=== PATIENT | female | born 1955 | race Hispanic/Latino ===

== ENCOUNTER 2017-01-03 11:54 | Emergency (ER) | payer BC, OTHER ==
[2017-01-03 11:55] VITALS: BMI 26.6
[2017-01-03 11:59] VITALS: BP 119/85; PULSE 88; RESP 18; TEMP 98.3
[2017-01-03] MEDS ORDERED: Oxycodone/Acetaminophen 5/325 mg Tab PO STA (12:15)
--- NOTE | 2017-01-03 12:18 | C.PDOC ---
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 Pt reports, " tripped over my grandson and fell down , trying to break fall with my Right hand". Otherwise, pt denies weakness, sensory or vascular deficits to Right hand. Denies previous hx of Right wrist injury or surgery, denies head injury, LOC, syncope, headache , dizziness, neck pain, CP, denies any other active complaints. Ambulate to ED, not in any apparent distress. Time Seen by Provider: 01/03/17 12:10 Chief Complaint (Nursing): Upper Extremity Problem/Injury History Per: Patient Onset/Duration Of Symptoms: Sudden Onset Past Medical History Reviewed: Historical Data, Nursing Documentation, Vital Signs Vital Signs: Last Vital Signs Temp 98.3 F 01/03/17 12:50 Pulse 88 01/03/17 12:50 Resp 18 01/03/17 12:50 BP 119/85 01/03/17 12:50 Pulse Ox 97 01/03/17 12:50 - Medical History PMH: Arthritis, Asthma Denies: Chronic Kidney Disease - [facility] Procedures OTHER & OPEN REPAIR UMBILICAL HERNIA W GRAFT OR PROSTHESIS (08/25/13) Family History: States: No Known Family Hx - Social History Hx Tobacco Use: No Hx Alcohol Use: Yes Hx Substance Use: No - Immunization History Hx Tetanus Toxoid Vaccination: No Hx Influenza Vaccination: No Hx Pneumococcal Vaccination: No Review Of Systems Except As Marked, All Systems Reviewed And Found Negative. Constitutional: Negative for: Fever, Chills ENT: Negative for: Throat Pain Cardiovascular: Negative for: Chest Pain Gastrointestinal: Negative for: Nausea, Vomiting Genitourinary: Negative for: Incontinence Musculoskeletal: Positive for: Hand Pain (Right wrist pain) Neurological: Negative for: Weakness, Numbness, Altered Mental Status, Headache , Dizziness Physical Exam - Physical Exam Appears: Well, Non-toxic, No Acute Distress Skin: Normal Color, Warm, No Rash, No Ecchymosis Head: Atraumatic, Normacephalic Neck: No Midline Cervical Tenderness, No Paracervical Tenderness, No Step Off Deformity, Supple Extremity: No Normal ROM (decrease AROM of Right wrist due to pian. remainder exam is noraml with FAROM.), Tenderness (Dorsal aspect Right wrist with mild deformity. No neurovascular deficist distally to injury.), Capillary Refill ( less than 2sec to RUE) Neurological/Psych: Oriented x3, Normal Speech, Normal Motor, Normal Sensation, Normal Reflexes ED Course And Treatment O2 Sat by Pulse Oximetry: 96 - Other Rad Right wrist X-Ray: Interpreted by Me Interpretation: (+) distal radius fx, comminuted, non-displaced Right elbow X-Ray: Interpreted by Me, Viewed By Me Interpretation: no acute fx Progress Note: On re-eavl, pt is afebrile, hemodynamiclay stable. Non-toxic. Ambulatory in ED with stable gait. Head: AT/NC. neck: (-) midline tenderness. RUE: exam c/w wrist contusion r/o fx. No neurovascular deficits distally to injury. Imaging review (+) distal radial fx. Splint applied. Pt advised and ref. to f/u with Ortho in 2-3 days for re-eval. return to ED if any worsening or new changes. Orthopedic Time Performed: 12:30 Time Out: Side verified, Site verified, Patient ID confirmed Procedure: Splint Other:: Volar Location: Right, Wrist Consent obtained: Verbal Performed by: Mid-level Provider Diagnosis: Fracture Type: Closed, Non-displaced, Comminuted Location: Right, Distal Bone: Radius Disposition Counseled Patient/Family Regarding: Studies Performed, Diagnosis, Need For Followup, Rx Given - Disposition Referrals: Sterling Aguirre MD [Staff Provider] - Disposition: HOME/ ROUTINE Disposition Time: 12:31 Condition: STABLE Additional Instructions: Splint Take pain medication as need Follow up with Orthopedist in 2-3 days for re-evaluation. return to Ed if any worsening or new changes. Prescriptions: oxyCODONE/Acetaminophen [Percocet 5/325 mg Tab] 1 tab PO BID PRN #7 tab PRN Reason: Pain Instructions: Wrist Fracture in Adults (ED) - Clinical Impression Clinical Impression: Wrist fracture
[2017-01-03] MEDS ORDERED: Oxycodone/Acetaminophen 5/325 mg Tab ONE (12:30)
--- NOTE | 2017-01-03 15:44 | RAD ---
PROCEDURE: Right Wrist Radiographs. HISTORY: injury COMPARISON: None. FINDINGS: BONES: Nondisplaced transverse distal radial fracture. No definite intra-articular extension. No other fracture identified. JOINTS: Radiocarpal articulation maintained. Normal carpal alignment. SOFT TISSUES: Normal. OTHER FINDINGS: None. IMPRESSION: Nondisplaced transverse distal radial fracture.
--- NOTE | 2017-01-03 16:06 | RAD ---
PROCEDURE: Radiographs of the right elbow. HISTORY: injury COMPARISON: No prior. FINDINGS: BONES: Normal. No fracture. JOINTS: Normal. No osteoarthritis. SOFT TISSUES: Normal. JOINT EFFUSION: None. OTHER FINDINGS: None. IMPRESSION: Unremarkable radiographs of the right elbow.
[2017-01-03 20:37] VITALS: O2SAT 96
== END 2017-01-03 12:50 | disposition home or self-care (01) ==
LOC: C.ER 11:54
DX: S52.501A Unspecified fracture of the lower end of right radius, initial encounter for closed fracture (principal); W01.0XXA Fall on same level from slipping, tripping and stumbling without subsequent striking against object, initial encounter; Y93.89 Activity, other specified; Y92.89 Other specified places as the place of occurrence of the external cause

== ENCOUNTER 2017-03-30 15:28 | Inpatient (IN) | payer BC ==
[2017-03-30 15:28] VITALS: BMI 26.6
[2017-03-30] MEDS ORDERED: Albuterol-Ipratrop 3 mg / 0.5 (3 ml) UD ONE ×4 (15:56→18:55)
[2017-03-30] MEDS ORDERED: Albuterol-Ipratrop 3 mg / 0.5 (3 ml) UD INH STA ×4 (16:35→18:49)
[2017-03-30 17:12] LABS: BASO # 0.1 K/uL (0.0-0.2); BASO % 0.4 % (0.0-2.0); EOS % 0.1 % (0.0-4.0); LYMPH # 2.5 K/uL (1.0-4.3); LYMPH % 18.3 % (20.0-40.0); MEAN CELL VOLUME 84.3 fL (81.0-99.0); MEAN CORPUSCULAR HEMOGLOBIN 28.7 pg (27.0-31.0); MEAN PLATELET VOLUME 8.1 fL (7.2-11.7); MONO # 1.1 K/uL (0.0-0.8); MONO % 8.3 % (0.0-10.0); WHITE BLOOD COUNT 13.4 K/uL (4.8-10.8)
[2017-03-30 17:14] LABS: CHLORIDE 101 mmol/L (98-107)
[2017-03-30 17:15] LABS: POTASSIUM 3.6 mmol/L (3.6-5.2); SODIUM 139 mmol/L (132-148)
[2017-03-30 17:17] LABS: ALB/GLOB RATIO 1.2 (1.0-2.1); ALKALINE PHOSPHATASE 99 U/L (38-126); AST/SGOT 14 U/L (14-36); BILIRUBIN,TOTAL 0.8 mg/dL (0.2-1.3); BLOOD UREA NITROGEN 8 mg/dL (7-17); CARBON DIOXIDE 24 mmol/L (22-30); GFR AFRICAN-AMERICAN > 60; TOTAL PROTEIN 7.7 g/dL (6.3-8.3)
[2017-03-30 17:18] LABS: ALT/SGPT 24 U/L (9-52); CALCIUM 8.9 mg/dl (8.6-10.4); GLUCOSE,RANDOM 104 mg/dL (65-105)
--- NOTE | 2017-03-30 17:59 | C.PDOC ---
History Of Present Illness 61 y/o female, with PMHx of asthma, presents to ED for evaluation of shortness of breath since last night. Pt notes that her symptom was triggered by a cold. Notes that she developed congestion today. Notes that she lives in [place] , and does not have her medications here. Pt states that last asthma exacerbation was 2 years ago. Notes she quit smoking 6 months ago. Denies Hx of intubation. Otherwise, denies any chest pain, cough, fever, or chills. Time Seen by Provider: 03/30/17 16:26 Chief Complaint (Nursing): Shortness Of Breath History Per: Patient History/Exam Limitations: no limitations Onset/Duration Of Symptoms: Days (1) Current Symptoms Are (Timing): Still Present Severity: None Pain Scale Rating Of: 0 Associated Symptoms: denies: Fever, Chills, Sweating, Chest Pain, Bloody Cough, Productive Cough, Heart Racing, Leg/Calf Pain, Ankle/Leg Swelling, Dizziness, Light-headedness, Anxiety, Tingling In Hands Or Face, Musle Spasms In Hands Or Feet Recent travel outside of the [place]: No Additional History Per: Patient Past Medical History Reviewed: Historical Data, Nursing Documentation, Vital Signs Vital Signs: Last Vital Signs Temp 97.8 F 03/30/17 15:59 Pulse 82 03/30/17 18:57 Resp 18 03/30/17 18:57 BP 101/71 03/30/17 17:54 Pulse Ox 96 03/30/17 18:57 - Medical History PMH: Arthritis, Asthma Denies: Chronic Kidney Disease - [facility] Procedures OTHER & OPEN REPAIR UMBILICAL HERNIA W GRAFT OR PROSTHESIS (08/25/13) Family History: States: Unknown Family Hx - Social History Hx Tobacco Use: No Hx Alcohol Use: Yes Hx Substance Use: No - Immunization History Hx Tetanus Toxoid Vaccination: No Hx Influenza Vaccination: No Hx Pneumococcal Vaccination: No Review Of Systems Except As Marked, All Systems Reviewed And Found Negative. Constitutional: Negative for: Fever, Chills ENT: Positive for: Nose Congestion Cardiovascular: Negative for: Chest Pain, Palpitations, Edema, Light Headedness Respiratory: Positive for: Shortness of Breath. Negative for: Cough, Hemoptysis , Sputum Gastrointestinal: Negative for: Nausea, Vomiting, Abdominal Pain Skin: Negative for: Rash, Bruising Neurological: Negative for: Headache, Dizziness Physical Exam - Physical Exam Appears: Non-toxic, Other (In respiratory distress, hypoxic) Skin: Normal Color, Warm, Dry, No Rash Head: Atraumatic, Normacephalic Eye(s): bilateral: Normal Inspection, EOMI Nose: Normal Oral Mucosa: Moist Neck: Normal ROM, Supple Chest: Symmetrical Cardiovascular: Rhythm Regular, No Murmur Respiratory: No Rales, No Rhonchi, Wheezing (bilaterally) Gastrointestinal/Abdominal: Soft, No Tenderness Back: No CVA Tenderness Extremity: Normal ROM, No Pedal Edema Neurological/Psych: Oriented x3, Normal Speech ED Course And Treatment - Laboratory Results Result Diagrams: 03/30/17 17:02 03/30/17 17:02 O2 Sat by Pulse Oximetry: 95 Pulse Ox Interpretation: Normal Progress Note: Blood work, angio chest CT, CXR ordered and reviewed. Pt was given Solu-Medrol, and nebulizer treatment. On re-eval, wheezing and hypoxia. Additional nebs ordered. On re-evaluation, pt notes symptoms persists. Csae discussed with Dr You, agreed upon admission. 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 - Scribe Statement The provider has reviewed the documentation as recorded by the Scribe Jess You All medical record entries made by the Scribsabino were at my direction and personally dictated by me. I have reviewed the chart and agree that the record accurately reflects my personal performance of the history, physical exam, medical decision making, and the department course for this patient. I have also personally directed, reviewed, and agree with the discharge instructions and disposition.
[2017-03-30] MEDS ORDERED: Magnesium Sulfate 1 gm in D5W 2 GM/200 ML BAG IVPB ONE (18:16)
[2017-03-30] MEDS: Magnesium Sulfate 1 gm in D5W 1 GM/100 ML BAG IVPB SCH (18:29)
[2017-03-30] MEDS ORDERED: Iodixanol 320 mg/ml 150 ml Bottle IV ONE (18:56)
--- NOTE | 2017-03-30 21:03 | CT ---
EXAM: CT Angiography Chest With Intravenous Contrast EXAM DATE/TIME: 03/30/2017 6:07 PM CLINICAL HISTORY: 61 years old, female; Pain and signs and symptoms; Shortness of breath; Chest wall pain; Additional info: SOB TECHNIQUE: Axial computed tomographic angiography images of the chest with intravenous contrast using pulmonary embolism protocol. All CT scans at this facility use one or more dose reduction techniques, viz.: automated exposure control; ma/kV adjustment per patient size (including targeted exams where dose is matched to indication; i.e. head); or iterative reconstruction technique. MIP reconstructed images were created and reviewed. Coronal and sagittal reformatted images were created and reviewed. CONTRAST: 100 mL of visipaque 320 administered intravenously. COMPARISON: There are no prior studies for comparison. FINDINGS: Artifacts: Motion artifact degrades image quality. Heart, aorta and Pulmonary arteries: Heart size is normal. There are coronary artery calcifications. There is trace fluid in pericardial recesses. There is no aneurysm or dissection. There is perfusion of the 3 arch vessels.There are vascular calcifications. There are no central pulmonary emboli. Allowing for streak and motion, there are no peripheral emboli. Lungs and pleural spaces: There is scarring at the lung apices. There are subtle asymmetric groundglass opacities. There is almost complete right middle lobe atelectasis. There are multiple small right upper and lower lobe pulmonary nodules best seen on the coronal MIP images. Largest nodule is in the right lower lobe, 12 x 6.7 x 6.7 mm, image 171 series 2, image 65 series 601 There are small left upper lobe nodules. There are atelectatic changes at both lung bases. There are no effusions Mediastinum: Trachea and main bronchi are patent. There is precarinal and subcarinal adenopathy. There is bilateral hilar adenopathy. There is distortion of the right hilum. There is encasement and almost complete occlusion of the right middle lobe bronchus. Right upper lobe and right lower lobe bronchi are patent. There is encasement and mild narrowing of the left upper and lower lobe bronchi. Largest right hilar node measures 2.5 x 1.7 cm, image 110 series 2 Largest left hilar node measures 2.7 x 1.8 cm, image 115 series 2. Esophagus is unremarkable. There is a small hiatal hernia. Thyroid: Thyroid is not optimally demonstrated. There are low attenuation nodules. Bones/joints: There are degenerative changes in the osseus structures. Soft tissues: unremarkable Upper abdomen: There are no acute abnormalities in the visualized portion of the abdomen. There are postsurgical changes of gastric bypass. Gallbladder is absent. There are dilated small bowel loops in the upper abdomen. IMPRESSION: Mediastinal and hilar adenopathy and multiple small bilateral pulmonary nodules, findings are suspicious for malignancy; almost complete occlusion of the right middle lobe bronchus with right middle lobe atelectasis Additional findings as described above.
[2017-03-31] MEDS ORDERED: Moxifloxacin IV 400mg/250ml NS 400 MG/250 ML BAG IVPB SCH (00:15)
[2017-03-31] MEDS: MethylPREDNISolone 40 mg Vial IVP SCH ×4 (00:37→22:45)
[2017-03-31] MEDS: Albuterol-Ipratrop 3 mg / 0.5 (3 ml) UD INH SCH ×4 (01:48→19:31)
--- NOTE | 2017-03-31 08:25 | RAD ---
HISTORY: SOB COMPARISON: No prior. TECHNIQUE: Chest PA and lateral FINDINGS: LUNGS: Right middle lobe consolidation (atelectasis with or without infiltrate). Bibasilar increased bronchovascular markings ill-defined. Vague low-density nodular opacity lateral right lung base -indeterminate. PLEURA: No significant pleural effusion identified. No pneumothorax apparent. Eight right apical pleural reaction is thickened CARDIOVASCULAR: Normal. Right infrahilar vague increased tissue density OSSEOUS STRUCTURES: Lateral clavicular partial resection VISUALIZED UPPER ABDOMEN: Normal. OTHER FINDINGS: None. IMPRESSION: Right middle lobe subsegmental consolidation/ active cysts with or without infiltrate. Strandy bronchovascular markings - bibasilar Vague nodular low-density opacity the right lung base. Correlation with CT advised
[2017-03-31] MEDS: Azithromycin 500 MG in Sodium Chloride 0.9% 250 ML IVPB SCH (10:19)
[2017-03-31] MEDS: Pantoprazole 40 mg EC Tab PO SCH (10:19)
[2017-03-31] MEDS: Fluticasone-Salmeterol 250-50mcg Diskus INH SCH ×2 (10:48→19:38)
--- NOTE | 2017-03-31 14:53 | CARD ---
APPROVED REPORT EKG Measurement Heart [id number] <Conclusion> Sinus tachycardia Nonspecific ST abnormality Abnormal ECG
--- NOTE | 2017-03-31 17:23 | CP.PCM.CON ---
History of Present Illness - History of Present Illness History of Present Illness: Reason for consultation: Shortness of breath and lung nodules 61-year-old female with history of asthma/COPD presented to the emergency room with worsening shortness of breath. Patient states her symptoms were triggered by cold she developed like a week ago. Also complaining of cough which is productive of copious amount of purulent phlegm. Patient states that she quit smoking 5 months ago and her last asthma attack was 2 years ago. CAT scan done in the hospital showed multiple lung nodules and right middle lobe atelectasis. Review of Systems - Review of Systems All systems: reviewed and no additional remarkable complaints except (Shortness of breath and productive cough) Past Patient History - Infectious Disease Hx of Infectious Diseases: None - Past Medical History & Family History Past Medical History?: Yes - Past Social History Smoking Status: Former Smoker - CARDIAC Hx Cardiac Disorders: No - PULMONARY Hx Respiratory Disorders: Yes Hx Asthma: Yes - NEUROLOGICAL Hx Neurological Disorder: No - HEENT Hx HEENT Problems: No - RENAL Hx Chronic Kidney Disease: No - ENDOCRINE/METABOLIC Hx Endocrine Disorders: No - HEMATOLOGICAL/ONCOLOGICAL Hx Blood Disorders: No - INTEGUMENTARY Hx Dermatological Problems: No - MUSCULOSKELETAL/RHEUMATOLOGICAL Hx Musculoskeletal Disorders: Yes Hx Arthritis: Yes Hx Falls: No - GASTROINTESTINAL Hx Gastrointestinal Disorders: No - GENITOURINARY/GYNECOLOGICAL Hx Genitourinary Disorders: No - PSYCHIATRIC Hx Psychophysiologic Disorder: No Hx Substance Use: No - SURGICAL HISTORY Hx Surgeries: Yes Hx Herniorrhaphy: Yes Hx Orthopedic Surgery: Yes Other/Comment: back sx x2, abd hernia repair and shoulder - ANESTHESIA Hx Anesthesia: Yes Hx Anesthesia Reactions: No Hx Malignant Hyperthermia: No Meds Allergies/Adverse Reactions: Allergies Allergy/AdvReac Type Severity Reaction Status Date / Time Penicillins Allergy Verified 03/30/17 16:01 - Medications Medications: Current Medications Albuterol/Ipratropium (Duoneb 3 Mg/0.5 Mg (3 Ml) Ud) 3 ml INH RQ6 [facility] Last Admin: 03/31/17 13:23 Dose: Not Given Enoxaparin Sodium (Lovenox) 40 mg SC DAILY [facility] Azithromycin 500 mg/ Sodium (Chloride) 250 mls @ 250 mls/hr IVPB DAILY [facility] Last Admin: 03/31/17 10:19 Dose: 250 mls/hr Methylprednisolone (Solu-Medrol) 40 mg IVP Q8 [facility] Last Admin: 03/31/17 13:37 Dose: 40 mg Moxifloxacin HCl (Avelox) 400 mg PO DAILY [facility] Last Admin: 03/31/17 10:19 Dose: 400 mg Pantoprazole Sodium (Protonix Ec Tab) 40 mg PO DAILY [facility] Last Admin: 03/31/17 10:19 Dose: 40 mg Pneumococcal Polyvalent Vaccine (Pneumovax 23 Vaccine) 0.5 ml IM .ONCE ONE Stop: 04/03/17 10:01 Fluticasone/Salmeterol (Advair Diskus 250/50) 1 puff INH RQ12 [facility] Last Admin: 03/31/17 10:48 Dose: Not Given Physical Exam - Constitutional Appears: No Acute Distress - Head Exam Head Exam: ATRAUMATIC, NORMOCEPHALIC - Eye Exam Eye Exam: Normal appearance - ENT Exam ENT Exam: Mucous Membranes Moist - Neck Exam Neck exam: Positive for: Normal Inspection - Respiratory Exam Respiratory Exam: Rhonchi, Wheezes - Cardiovascular Exam Cardiovascular Exam: REGULAR RHYTHM - GI/Abdominal Exam GI & Abdominal Exam: Normal Bowel Sounds, Soft - Extremities Exam Extremities exam: Positive for: normal inspection - Neurological Exam Neurological exam: Alert, Oriented x3 Results - Vital Signs Recent Vital Signs: Last Vital Signs Temp 97.4 F L 03/31/17 15:53 Pulse 72 03/31/17 15:53 Resp 22 03/31/17 15:53 BP 82/63 L 03/31/17 15:53 Pulse Ox 93 L 03/31/17 15:53 - Labs Result Diagrams: 03/30/17 17:02 03/30/17 17:02 Labs: Laboratory Results - last 24 hr 03/30/17 03/30/17 17:02 17:02 D-Dimer, Quantitative 349 H CK-MB (Mass) < 0.22 Troponin I < 0.0120 NT-Pro-B Natriuret Pep 126 Assessment & Plan (1) COPD (chronic obstructive pulmonary disease) Status: Acute Comment: Patient with long history of smoking presented with shortness of breath and cough. Continue nebulizer treatment, IV steroids and antibiotics. Continue BiPAP as needed. Follow-up ABG. Mucomyst (2) Lung nodules Status: Acute (3) Atelectasis Status: Acute
[2017-03-31] MEDS: Enoxaparin 40 mg Syringe SC SCH (17:40)
[2017-03-31] MEDS: Acetylcysteine 20% Inhal Soln (4ml) INH SCH (19:31)
--- NOTE | 2017-03-31 21:27 | CP.PCM.HP ---
Past Patient History - Infectious Disease Hx of Infectious Diseases: None - Past Medical History & Family History Past Medical History?: Yes - Past Social History Smoking Status: Former Smoker - CARDIAC Hx Cardiac Disorders: No - PULMONARY Hx Respiratory Disorders: Yes Hx Asthma: Yes - NEUROLOGICAL Hx Neurological Disorder: No - HEENT Hx HEENT Problems: No - RENAL Hx Chronic Kidney Disease: No - ENDOCRINE/METABOLIC Hx Endocrine Disorders: No - HEMATOLOGICAL/ONCOLOGICAL Hx Blood Disorders: No - INTEGUMENTARY Hx Dermatological Problems: No - MUSCULOSKELETAL/RHEUMATOLOGICAL Hx Musculoskeletal Disorders: Yes Hx Arthritis: Yes Hx Falls: No - GASTROINTESTINAL Hx Gastrointestinal Disorders: No - GENITOURINARY/GYNECOLOGICAL Hx Genitourinary Disorders: No - PSYCHIATRIC Hx Psychophysiologic Disorder: No Hx Substance Use: No - SURGICAL HISTORY Hx Surgeries: Yes Hx Herniorrhaphy: Yes Hx Orthopedic Surgery: Yes Other/Comment: back sx x2, abd hernia repair and shoulder - ANESTHESIA Hx Anesthesia: Yes Hx Anesthesia Reactions: No Hx Malignant Hyperthermia: No Meds Allergies/Adverse Reactions: Allergies Allergy/AdvReac Type Severity Reaction Status Date / Time Penicillins Allergy Verified 03/30/17 16:01 Physical Exam - Constitutional Appears: Well - Head Exam Head Exam: ATRAUMATIC, NORMAL INSPECTION, NORMOCEPHALIC - Eye Exam Eye Exam: EOMI, Normal appearance, PERRL Pupil Exam: NORMAL ACCOMODATION, PERRL - ENT Exam ENT Exam: Mucous Membranes Moist, Normal Exam - Neck Exam Neck exam: Positive for: Normal Inspection - Respiratory Exam Respiratory Exam: Decreased Breath Sounds - Cardiovascular Exam Cardiovascular Exam: REGULAR RHYTHM, +S1, +S2 - GI/Abdominal Exam GI & Abdominal Exam: Diminished Bowel Sounds, Soft - Rectal Exam Rectal Exam: Deferred Results - Vital Signs Recent Vital Signs: Last Vital Signs Temp 97.4 F L 03/31/17 15:53 Pulse 72 03/31/17 19:34 Resp 22 03/31/17 15:53 BP 82/63 L 03/31/17 15:53 Pulse Ox 93 L 03/31/17 15:53 - Labs Result Diagrams: 03/30/17 17:02 03/30/17 17:02
[2017-04-01] MEDS: Albuterol-Ipratrop 3 mg / 0.5 (3 ml) UD INH SCH ×4 (01:37→20:10)
[2017-04-01] MEDS: Acetylcysteine 20% Inhal Soln (4ml) INH SCH ×4 (01:38→20:10)
[2017-04-01] MEDS: MethylPREDNISolone 40 mg Vial IVP SCH ×3 (06:11→21:44)
[2017-04-01] MEDS: Pantoprazole 40 mg EC Tab PO SCH (10:09)
[2017-04-01] MEDS: Enoxaparin 40 mg Syringe SC SCH (10:09)
[2017-04-01] MEDS: Azithromycin 500 MG in Sodium Chloride 0.9% 250 ML IVPB SCH (10:10)
[2017-04-01] MEDS: Fluticasone-Salmeterol 250-50mcg Diskus INH SCH ×2 (10:32→20:10)
--- NOTE | 2017-04-01 11:43 | CP.PCM.CON ---
Past Patient History - Infectious Disease Hx of Infectious Diseases: None - Past Medical History & Family History Past Medical History?: Yes - Past Social History Smoking Status: Former Smoker - CARDIAC Hx Cardiac Disorders: No - PULMONARY Hx Respiratory Disorders: Yes Hx Asthma: Yes - NEUROLOGICAL Hx Neurological Disorder: No - HEENT Hx HEENT Problems: No - RENAL Hx Chronic Kidney Disease: No - ENDOCRINE/METABOLIC Hx Endocrine Disorders: No - HEMATOLOGICAL/ONCOLOGICAL Hx Blood Disorders: No - INTEGUMENTARY Hx Dermatological Problems: No - MUSCULOSKELETAL/RHEUMATOLOGICAL Hx Musculoskeletal Disorders: Yes Hx Arthritis: Yes Hx Falls: No - GASTROINTESTINAL Hx Gastrointestinal Disorders: No - GENITOURINARY/GYNECOLOGICAL Hx Genitourinary Disorders: No - PSYCHIATRIC Hx Psychophysiologic Disorder: No Hx Substance Use: No - SURGICAL HISTORY Hx Surgeries: Yes Hx Herniorrhaphy: Yes Hx Orthopedic Surgery: Yes Other/Comment: back sx x2, abd hernia repair and shoulder - ANESTHESIA Hx Anesthesia: Yes Hx Anesthesia Reactions: No Hx Malignant Hyperthermia: No Meds Allergies/Adverse Reactions: Allergies Allergy/AdvReac Type Severity Reaction Status Date / Time Penicillins Allergy Verified 03/30/17 16:01 - Medications Medications: Current Medications Acetylcysteine (Acetylcysteine 20%) 4 ml INH RQ6 [facility] Last Admin: 04/01/17 07:26 Dose: 4 ml Albuterol/Ipratropium (Duoneb 3 Mg/0.5 Mg (3 Ml) Ud) 3 ml INH RQ6 [facility] Last Admin: 04/01/17 07:25 Dose: 3 ml Enoxaparin Sodium (Lovenox) 40 mg SC DAILY [facility] Last Admin: 04/01/17 10:09 Dose: 40 mg Azithromycin 500 mg/ Sodium (Chloride) 250 mls @ 250 mls/hr IVPB DAILY [facility] Last Admin: 04/01/17 10:10 Dose: 250 mls/hr Methylprednisolone (Solu-Medrol) 40 mg IVP Q8 [facility] Last Admin: 04/01/17 06:11 Dose: 40 mg Moxifloxacin HCl (Avelox) 400 mg PO DAILY [facility] Last Admin: 04/01/17 10:09 Dose: 400 mg Pantoprazole Sodium (Protonix Ec Tab) 40 mg PO DAILY [facility] Last Admin: 04/01/17 10:09 Dose: 40 mg Pneumococcal Polyvalent Vaccine (Pneumovax 23 Vaccine) 0.5 ml IM .ONCE ONE Stop: 04/03/17 10:01 Fluticasone/Salmeterol (Advair Diskus 250/50) 1 puff INH RQ12 [facility] Last Admin: 04/01/17 10:32 Dose: Not Given Results - Vital Signs Recent Vital Signs: Last Vital Signs Temp 97.3 F L 04/01/17 07:20 Pulse 75 04/01/17 07:20 Resp 20 04/01/17 07:20 BP 94/61 L 04/01/17 07:20 Pulse Ox 96 04/01/17 07:20 - Labs Result Diagrams: 03/30/17 17:02 03/30/17 17:02
--- NOTE | 2017-04-01 17:49 | CP.PCM.PN ---
Subjective - Date & Time of Evaluation Date of Evaluation: 04/01/17 Time of Evaluation: 12:20 - Subjective Subjective: clinically same Objective - Vital Signs/Intake and Output Vital Signs (last 24 hours): Temp Pulse Resp BP Pulse Ox 97.7 F 84 91 H 103/65 24 L 04/01/17 16:00 04/01/17 16:00 04/01/17 16:00 04/01/17 16:00 04/01/17 16:00 Intake and Output: 04/01/17 04/01/17 06:59 18:59 Intake Total 120 500 Balance 120 500 - Medications Medications: Current Medications Acetylcysteine (Acetylcysteine 20%) 4 ml INH RQ6 [facility] Last Admin: 04/01/17 13:35 Dose: 4 ml Albuterol/Ipratropium (Duoneb 3 Mg/0.5 Mg (3 Ml) Ud) 3 ml INH RQ6 [facility] Last Admin: 04/01/17 13:34 Dose: 3 ml Enoxaparin Sodium (Lovenox) 40 mg SC DAILY [facility] Last Admin: 04/01/17 10:09 Dose: 40 mg Azithromycin 500 mg/ Sodium (Chloride) 250 mls @ 250 mls/hr IVPB DAILY [facility] Last Admin: 04/01/17 10:10 Dose: 250 mls/hr Methylprednisolone (Solu-Medrol) 40 mg IVP Q8 [facility] Last Admin: 04/01/17 14:52 Dose: 40 mg Moxifloxacin HCl (Avelox) 400 mg PO DAILY [facility] Last Admin: 04/01/17 10:09 Dose: 400 mg Pantoprazole Sodium (Protonix Ec Tab) 40 mg PO DAILY [facility] Last Admin: 04/01/17 10:09 Dose: 40 mg Pneumococcal Polyvalent Vaccine (Pneumovax 23 Vaccine) 0.5 ml IM .ONCE ONE Stop: 04/03/17 10:01 Fluticasone/Salmeterol (Advair Diskus 250/50) 1 puff INH RQ12 [facility] Last Admin: 04/01/17 10:32 Dose: Not Given - Labs Labs: 03/30/17 17:02 03/30/17 17:02 - Constitutional Appears: Well - Head Exam Head Exam: ATRAUMATIC, NORMAL INSPECTION, NORMOCEPHALIC - Eye Exam Eye Exam: EOMI, Normal appearance, PERRL Pupil Exam: NORMAL ACCOMODATION, PERRL - ENT Exam ENT Exam: Mucous Membranes Moist, Normal Exam - Neck Exam Neck Exam: Full ROM, Normal Inspection. absent: Lymphadenopathy - Respiratory Exam Respiratory Exam: Decreased Breath Sounds - Cardiovascular Exam Cardiovascular Exam: REGULAR RHYTHM, +S1, +S2 - GI/Abdominal Exam GI & Abdominal Exam: Soft, Diminished Bowel Sounds - Rectal Exam Rectal Exam: Deferred
[2017-04-02] MEDS: Albuterol-Ipratrop 3 mg / 0.5 (3 ml) UD INH SCH ×4 (02:08→19:34)
[2017-04-02] MEDS: Acetylcysteine 20% Inhal Soln (4ml) INH SCH ×4 (02:09→19:36)
[2017-04-02] MEDS: MethylPREDNISolone 40 mg Vial IVP SCH ×3 (06:50→21:37)
[2017-04-02] MEDS: Fluticasone-Salmeterol 250-50mcg Diskus INH SCH ×2 (07:42→19:36)
[2017-04-02] MEDS: Azithromycin 500 MG in Sodium Chloride 0.9% 250 ML IVPB SCH (09:55)
[2017-04-02] MEDS: Enoxaparin 40 mg Syringe SC SCH (09:56)
[2017-04-02] MEDS: Pantoprazole 40 mg EC Tab PO SCH (09:56)
--- NOTE | 2017-04-02 12:02 | CP.PCM.CON ---
History of Present Illness - History of Present Illness History of Present Illness: 61 year old female with a a history of tobacco abuse, COPD, admitted with worsening shortness of breath, found to have imaging concerning for metastatic disease. The patient reports her grandson has had a cold and she may have caught it. She notes to increasing cough and congestion x 1 week. This progressed to shortness of breath, which brought her to the ER. In the ER and CT chest revealed a mediastinal and hilar lymphadenopathy, and right middle lobe occlusion. There are b/l pulmonary nodules concerning for metastasis. Past medical history: tobacco abuse, COPD Past surgical history: None Family history: Father had lung cancer Social history: 1-3 ppd x 45 years, denies alcohol, and illicit drug use. Allergies: Penicillins Review of systems: All remaining review of systems including HEENT, cardiovascular, respiratory, gastrointestinal, genitourinary, musculoskeletal, dermatologic, neurologic, and psychiatric are negative unless mentioned in the HPI. Past Patient History - Infectious Disease Hx of Infectious Diseases: None - Past Medical History & Family History Past Medical History?: Yes - Past Social History Smoking Status: Former Smoker - CARDIAC Hx Cardiac Disorders: No - PULMONARY Hx Respiratory Disorders: Yes Hx Asthma: Yes - NEUROLOGICAL Hx Neurological Disorder: No - HEENT Hx HEENT Problems: No - RENAL Hx Chronic Kidney Disease: No - ENDOCRINE/METABOLIC Hx Endocrine Disorders: No - HEMATOLOGICAL/ONCOLOGICAL Hx Blood Disorders: No - INTEGUMENTARY Hx Dermatological Problems: No - MUSCULOSKELETAL/RHEUMATOLOGICAL Hx Musculoskeletal Disorders: Yes Hx Arthritis: Yes Hx Falls: No - GASTROINTESTINAL Hx Gastrointestinal Disorders: No - GENITOURINARY/GYNECOLOGICAL Hx Genitourinary Disorders: No - PSYCHIATRIC Hx Psychophysiologic Disorder: No Hx Substance Use: No - SURGICAL HISTORY Hx Surgeries: Yes Hx Herniorrhaphy: Yes Hx Orthopedic Surgery: Yes Other/Comment: back sx x2, abd hernia repair and shoulder - ANESTHESIA Hx Anesthesia: Yes Hx Anesthesia Reactions: No Hx Malignant Hyperthermia: No Meds Allergies/Adverse Reactions: Allergies Allergy/AdvReac Type Severity Reaction Status Date / Time Penicillins Allergy Verified 03/30/17 16:01 - Medications Medications: Current Medications Acetylcysteine (Acetylcysteine 20%) 4 ml INH RQ6 [facility] Last Admin: 04/02/17 07:41 Dose: 4 ml Albuterol/Ipratropium (Duoneb 3 Mg/0.5 Mg (3 Ml) Ud) 3 ml INH RQ6 [facility] Last Admin: 04/02/17 07:41 Dose: 3 ml Enoxaparin Sodium (Lovenox) 40 mg SC DAILY [facility] Last Admin: 04/02/17 09:56 Dose: 40 mg Azithromycin 500 mg/ Sodium (Chloride) 250 mls @ 250 mls/hr IVPB DAILY [facility] Last Admin: 04/02/17 09:55 Dose: 250 mls/hr Methylprednisolone (Solu-Medrol) 40 mg IVP Q8 [facility] Last Admin: 04/02/17 06:50 Dose: 40 mg Moxifloxacin HCl (Avelox) 400 mg PO DAILY [facility] Last Admin: 04/02/17 09:56 Dose: 400 mg Pantoprazole Sodium (Protonix Ec Tab) 40 mg PO DAILY [facility] Last Admin: 04/02/17 09:56 Dose: 40 mg Pneumococcal Polyvalent Vaccine (Pneumovax 23 Vaccine) 0.5 ml IM .ONCE ONE Stop: 04/03/17 10:01 Fluticasone/Salmeterol (Advair Diskus 250/50) 1 puff INH RQ12 [facility] Last Admin: 04/02/17 07:42 Dose: Not Given Physical Exam - Head Exam Head Exam: ATRAUMATIC - Eye Exam Eye Exam: Normal appearance - ENT Exam ENT Exam: Mucous Membranes Dry - Respiratory Exam Respiratory Exam: NORMAL BREATHING PATTERN - Cardiovascular Exam Cardiovascular Exam: +S1, +S2 - GI/Abdominal Exam GI & Abdominal Exam: Normal Bowel Sounds - Extremities Exam Extremities exam: Positive for: normal inspection - Neurological Exam Neurological exam: Oriented x3 - Psychiatric Exam Psychiatric exam: Normal Affect, Normal Mood Results - Vital Signs Recent Vital Signs: Last Vital Signs Temp 97.3 F L 04/02/17 07:55 Pulse 71 04/02/17 07:55 Resp 18 04/02/17 07:55 BP 101/62 04/02/17 07:55 Pulse Ox 95 04/02/17 07:55 - Labs Result Diagrams: 03/30/17 17:02 03/30/17 17:02 Assessment & Plan (1) Lung nodules Assessment and Plan: mediastinal and hilar lymphadenopathy; concerning for lung malignancy recommend pulmonary evaluation and bronchoscopy with biopsy will add CT A/P further treatment recommendations based on pathology Status: Acute (2) Leukocytosis Assessment and Plan: on antibiotics Thank you for this interesting consult. Status: Acute
--- NOTE | 2017-04-02 13:10 | CP.PCM.PN ---
Subjective - Date & Time of Evaluation Date of Evaluation: 04/01/17 Time of Evaluation: 16:00 - Subjective Subjective: Breathing better Objective - Vital Signs/Intake and Output Vital Signs (last 24 hours): Temp Pulse Resp BP Pulse Ox 97.3 F L 71 18 101/62 95 04/02/17 07:55 04/02/17 07:55 04/02/17 07:55 04/02/17 07:55 04/02/17 07:55 Intake and Output: 04/02/17 04/02/17 06:59 18:59 Intake Total 120 Balance 120 - Medications Medications: Current Medications Acetylcysteine (Acetylcysteine 20%) 4 ml INH RQ6 [facility] Last Admin: 04/02/17 07:41 Dose: 4 ml Albuterol/Ipratropium (Duoneb 3 Mg/0.5 Mg (3 Ml) Ud) 3 ml INH RQ6 [facility] Last Admin: 04/02/17 07:41 Dose: 3 ml Enoxaparin Sodium (Lovenox) 40 mg SC DAILY [facility] Last Admin: 04/02/17 09:56 Dose: 40 mg Azithromycin 500 mg/ Sodium (Chloride) 250 mls @ 250 mls/hr IVPB DAILY [facility] Last Admin: 04/02/17 09:55 Dose: 250 mls/hr Methylprednisolone (Solu-Medrol) 40 mg IVP Q8 [facility] Last Admin: 04/02/17 06:50 Dose: 40 mg Moxifloxacin HCl (Avelox) 400 mg PO DAILY [facility] Last Admin: 04/02/17 09:56 Dose: 400 mg Pantoprazole Sodium (Protonix Ec Tab) 40 mg PO DAILY [facility] Last Admin: 04/02/17 09:56 Dose: 40 mg Pneumococcal Polyvalent Vaccine (Pneumovax 23 Vaccine) 0.5 ml IM .ONCE ONE Stop: 04/03/17 10:01 Fluticasone/Salmeterol (Advair Diskus 250/50) 1 puff INH RQ12 [facility] Last Admin: 04/02/17 07:42 Dose: Not Given - Labs Labs: 03/30/17 17:02 03/30/17 17:02 - Head Exam Head Exam: ATRAUMATIC - Eye Exam Eye Exam: Normal appearance - ENT Exam ENT Exam: Mucous Membranes Dry - Respiratory Exam Respiratory Exam: NORMAL BREATHING PATTERN - Cardiovascular Exam Cardiovascular Exam: +S1, +S2 - GI/Abdominal Exam GI & Abdominal Exam: Normal Bowel Sounds - Extremities Exam Extremities Exam: Normal Inspection Assessment and Plan (1) Lung nodules Assessment & Plan: pulmonary evaluation bronchoscopy with biopsy Status: Acute (2) Leukocytosis Assessment & Plan: on antibiotics Status: Acute
--- NOTE | 2017-04-02 13:11 | CP.PCM.PN ---
Subjective - Date & Time of Evaluation Date of Evaluation: 04/02/17 Time of Evaluation: 13:00 - Subjective Subjective: Breathing better Objective - Vital Signs/Intake and Output Vital Signs (last 24 hours): Temp Pulse Resp BP Pulse Ox 97.3 F L 71 18 101/62 95 04/02/17 07:55 04/02/17 07:55 04/02/17 07:55 04/02/17 07:55 04/02/17 07:55 Intake and Output: 04/02/17 04/02/17 06:59 18:59 Intake Total 120 Balance 120 - Medications Medications: Current Medications Acetylcysteine (Acetylcysteine 20%) 4 ml INH RQ6 [facility] Last Admin: 04/02/17 07:41 Dose: 4 ml Albuterol/Ipratropium (Duoneb 3 Mg/0.5 Mg (3 Ml) Ud) 3 ml INH RQ6 [facility] Last Admin: 04/02/17 07:41 Dose: 3 ml Enoxaparin Sodium (Lovenox) 40 mg SC DAILY [facility] Last Admin: 04/02/17 09:56 Dose: 40 mg Azithromycin 500 mg/ Sodium (Chloride) 250 mls @ 250 mls/hr IVPB DAILY [facility] Last Admin: 04/02/17 09:55 Dose: 250 mls/hr Methylprednisolone (Solu-Medrol) 40 mg IVP Q8 [facility] Last Admin: 04/02/17 06:50 Dose: 40 mg Moxifloxacin HCl (Avelox) 400 mg PO DAILY [facility] Last Admin: 04/02/17 09:56 Dose: 400 mg Pantoprazole Sodium (Protonix Ec Tab) 40 mg PO DAILY [facility] Last Admin: 04/02/17 09:56 Dose: 40 mg Pneumococcal Polyvalent Vaccine (Pneumovax 23 Vaccine) 0.5 ml IM .ONCE ONE Stop: 04/03/17 10:01 Fluticasone/Salmeterol (Advair Diskus 250/50) 1 puff INH RQ12 [facility] Last Admin: 04/02/17 07:42 Dose: Not Given - Labs Labs: 03/30/17 17:02 03/30/17 17:02 - Head Exam Head Exam: ATRAUMATIC - Eye Exam Eye Exam: Normal appearance - ENT Exam ENT Exam: Mucous Membranes Dry - Respiratory Exam Respiratory Exam: NORMAL BREATHING PATTERN - Cardiovascular Exam Cardiovascular Exam: +S1, +S2 - GI/Abdominal Exam GI & Abdominal Exam: Normal Bowel Sounds - Extremities Exam Extremities Exam: Normal Inspection Assessment and Plan (1) Lung nodules Assessment & Plan: pulmonary evaluation bronchoscopy Status: Acute (2) Leukocytosis Assessment & Plan: on antibiotics Status: Acute
--- NOTE | 2017-04-02 17:28 | CP.PCM.PN ---
Subjective - Date & Time of Evaluation Date of Evaluation: 04/02/17 Time of Evaluation: 10:00 - Subjective Subjective: clinically same Objective - Vital Signs/Intake and Output Vital Signs (last 24 hours): Temp Pulse Resp BP Pulse Ox 97.1 F L 66 22 103/68 96 04/02/17 15:40 04/02/17 15:40 04/02/17 15:40 04/02/17 15:40 04/02/17 15:40 Intake and Output: 04/02/17 04/02/17 06:59 18:59 Intake Total 120 670 Balance 120 670 - Medications Medications: Current Medications Acetylcysteine (Acetylcysteine 20%) 4 ml INH RQ6 [facility] Last Admin: 04/02/17 13:14 Dose: 4 ml Albuterol/Ipratropium (Duoneb 3 Mg/0.5 Mg (3 Ml) Ud) 3 ml INH RQ6 [facility] Last Admin: 04/02/17 13:14 Dose: 3 ml Enoxaparin Sodium (Lovenox) 40 mg SC DAILY [facility] Last Admin: 04/02/17 09:56 Dose: 40 mg Azithromycin 500 mg/ Sodium (Chloride) 250 mls @ 250 mls/hr IVPB DAILY [facility] Last Admin: 04/02/17 09:55 Dose: 250 mls/hr Methylprednisolone (Solu-Medrol) 40 mg IVP Q8 [facility] Last Admin: 04/02/17 13:22 Dose: 40 mg Moxifloxacin HCl (Avelox) 400 mg PO DAILY [facility] Last Admin: 04/02/17 09:56 Dose: 400 mg Pantoprazole Sodium (Protonix Ec Tab) 40 mg PO DAILY [facility] Last Admin: 04/02/17 09:56 Dose: 40 mg Pneumococcal Polyvalent Vaccine (Pneumovax 23 Vaccine) 0.5 ml IM .ONCE ONE Stop: 04/03/17 10:01 Fluticasone/Salmeterol (Advair Diskus 250/50) 1 puff INH RQ12 [facility] Last Admin: 04/02/17 07:42 Dose: Not Given - Labs Labs: 03/30/17 17:02 03/30/17 17:02 - Constitutional Appears: Well - Head Exam Head Exam: ATRAUMATIC, NORMAL INSPECTION, NORMOCEPHALIC - Eye Exam Eye Exam: EOMI, Normal appearance, PERRL Pupil Exam: NORMAL ACCOMODATION, PERRL - ENT Exam ENT Exam: Mucous Membranes Moist, Normal Exam - Neck Exam Neck Exam: Full ROM, Normal Inspection. absent: Lymphadenopathy - Respiratory Exam Respiratory Exam: Decreased Breath Sounds - Cardiovascular Exam Cardiovascular Exam: REGULAR RHYTHM, +S1, +S2 - GI/Abdominal Exam GI & Abdominal Exam: Soft, Diminished Bowel Sounds - Rectal Exam Rectal Exam: Deferred
[2017-04-03] MEDS: Acetylcysteine 20% Inhal Soln (4ml) INH SCH ×4 (02:20→19:03)
[2017-04-03] MEDS: Albuterol-Ipratrop 3 mg / 0.5 (3 ml) UD INH SCH ×4 (02:20→19:03)
[2017-04-03] MEDS: MethylPREDNISolone 40 mg Vial IVP SCH ×3 (05:52→22:34)
[2017-04-03] MEDS: Fluticasone-Salmeterol 250-50mcg Diskus INH SCH ×2 (08:26→19:04)
--- NOTE | 2017-04-03 09:54 | CP.PCM.PN ---
Subjective - Date & Time of Evaluation Date of Evaluation: 04/03/17 Time of Evaluation: 07:40 - Subjective Subjective: PGY2 Resident - Medicine Progress Note Patient seen and examined at bedside. No overnight events per nursing. Patient is comfortable and admits the BiPAP is helping her. She is not currently SOB and is tolerating her diet. Awaiting eval for possible bronchoscopy with pulm. Otherwise no acute complaints. --- 61 year old female with a a history of tobacco abuse, COPD, admitted with worsening shortness of breath, found to have imaging concerning for metastatic disease. The patient reports her grandson has had a cold and she may have caught it. She notes to increasing cough and congestion x 1 week. This progressed to shortness of breath, which brought her to the ER. In the ER and CT chest revealed a mediastinal and hilar lymphadenopathy, and right middle lobe occlusion. There are b/l pulmonary nodules concerning for metastasis. PMH: Arthritis, Asthma Objective - Vital Signs/Intake and Output Vital Signs (last 24 hours): Temp Pulse Resp BP Pulse Ox 97.8 F 58 L 18 140/83 97 04/03/17 07:10 04/03/17 08:06 04/03/17 07:10 04/03/17 07:10 04/03/17 07:10 - Medications Medications: Current Medications Acetylcysteine (Acetylcysteine 20%) 4 ml INH RQ6 [facility] Last Admin: 04/03/17 07:33 Dose: 4 ml Albuterol/Ipratropium (Duoneb 3 Mg/0.5 Mg (3 Ml) Ud) 3 ml INH RQ6 [facility] Last Admin: 04/03/17 07:32 Dose: 3 ml Enoxaparin Sodium (Lovenox) 40 mg SC DAILY [facility] Last Admin: 04/02/17 09:56 Dose: 40 mg Azithromycin 500 mg/ Sodium (Chloride) 250 mls @ 250 mls/hr IVPB DAILY [facility] Last Admin: 04/02/17 09:55 Dose: 250 mls/hr Methylprednisolone (Solu-Medrol) 40 mg IVP Q8 [facility] Last Admin: 04/03/17 05:52 Dose: 40 mg Moxifloxacin HCl (Avelox) 400 mg PO DAILY [facility] Last Admin: 04/02/17 09:56 Dose: 400 mg Pantoprazole Sodium (Protonix Ec Tab) 40 mg PO DAILY [facility] Last Admin: 04/02/17 09:56 Dose: 40 mg Pneumococcal Polyvalent Vaccine (Pneumovax 23 Vaccine) 0.5 ml IM .ONCE ONE Stop: 04/03/17 10:01 Fluticasone/Salmeterol (Advair Diskus 250/50) 1 puff INH RQ12 [facility] Last Admin: 04/03/17 08:26 Dose: Not Given - Labs Labs: 03/30/17 17:02 03/30/17 17:02 - Additional Findings Additional findings: - Constitutional Appears: No Acute Distress - Head Exam Head Exam: ATRAUMATIC, NORMOCEPHALIC - Eye Exam Eye Exam: Normal appearance - ENT Exam ENT Exam: Mucous Membranes Dry - Neck Exam Neck exam: Positive for: Normal Inspection - Respiratory Exam Respiratory Exam: Decreased Breath Sounds, Clear to Ausculation Bilateral. absent: Wheezes, Rhonchi - Cardiovascular Exam Cardiovascular Exam: REGULAR RHYTHM, +S1, +S2 - GI/Abdominal Exam GI & Abdominal Exam: Normal Bowel Sounds, Soft - Extremities Exam Extremities exam: Positive for: normal inspection absent: Pedal Edema - Neurological Exam Neurological exam: Alert, Awake, Oriented x3 - Psychiatric Exam Psychiatric exam: Normal Affect, Normal Mood. - Skin Skin Exam: Dry, Intact Assessment and Plan - Assessment and Plan (Free Text) Assessment: Lung nodules 04/03: pulmonary evaluation for possible bronchoscopy with biopsy. f/u with Dr. Theodore and Dr. Davila. mediastinal and hilar lymphadenopathy; concerning for lung malignancy recommend pulmonary evaluation and bronchoscopy with biopsy Chest CT w/o contrast - Mediastinal and hilar adenopathy and multiple small bilateral pulmonary nodules, findings are suspicious for malignancy; almost complete occlusion of the right middle lobe bronchus with right middle lobe atelectasis further treatment recommendations based on pathology Status: Acute Leukocytosis 04/03: continue Avelox 400mg PO qD and Azithromycin 500mg IVPB qD on antibiotics COPD (chronic obstructive pulmonary disease) Status: Acute -Patient with long history of smoking presented with shortness of breath and cough. Continue nebulizer treatment, IV steroids and antibiotics. Continue BiPAP as needed. Follow-up ABG. Mucomyst Advair Diskus 250/50) 1 puff INH RQ12 [facility] Solu-Medrol) 40 mg IVP Q8 [facility] Duoneb 3 Mg/0.5 Mg (3 Ml) Ud) 3 ml INH RQ6 [facility] Acetylcysteine 20%) 4 ml INH RQ6 [facility] Prophylaxis SCDs Pneumovax 23 Vaccine) 0.5 ml IM .ONCE ONE Protonix Ec Tab) 40 mg PO DAILY [facility] Lovenox) 40 mg SC DAILY [facility] Case discussed with attending. All medical management as per Dr. Jazmin You
[2017-04-03] MEDS: Enoxaparin 40 mg Syringe SC SCH (09:58)
[2017-04-03] MEDS: Pantoprazole 40 mg EC Tab PO SCH (09:58)
[2017-04-03] MEDS ORDERED: Pneumococcal 23-Valent Vaccine IM ONE (10:00)
[2017-04-03] MEDS: Azithromycin 500 MG in Sodium Chloride 0.9% 250 ML IVPB SCH (10:02)
--- NOTE | 2017-04-03 11:05 | CP.PCM.PN ---
Subjective - Date & Time of Evaluation Date of Evaluation: 04/03/17 Time of Evaluation: 10:00 - Subjective Subjective: clinically same Objective - Vital Signs/Intake and Output Vital Signs (last 24 hours): Temp Pulse Resp BP Pulse Ox 97.8 F 58 L 18 140/83 97 04/03/17 07:10 04/03/17 08:06 04/03/17 07:10 04/03/17 07:10 04/03/17 07:10 - Medications Medications: Current Medications Acetylcysteine (Acetylcysteine 20%) 4 ml INH RQ6 [facility] Last Admin: 04/03/17 07:33 Dose: 4 ml Albuterol/Ipratropium (Duoneb 3 Mg/0.5 Mg (3 Ml) Ud) 3 ml INH RQ6 [facility] Last Admin: 04/03/17 07:32 Dose: 3 ml Enoxaparin Sodium (Lovenox) 40 mg SC DAILY [facility] Last Admin: 04/03/17 09:58 Dose: 40 mg Azithromycin 500 mg/ Sodium (Chloride) 250 mls @ 250 mls/hr IVPB DAILY [facility] Last Admin: 04/03/17 10:02 Dose: 250 mls/hr Methylprednisolone (Solu-Medrol) 40 mg IVP Q8 [facility] Last Admin: 04/03/17 05:52 Dose: 40 mg Moxifloxacin HCl (Avelox) 400 mg PO DAILY [facility] Last Admin: 04/03/17 09:58 Dose: 400 mg Pantoprazole Sodium (Protonix Ec Tab) 40 mg PO DAILY [facility] Last Admin: 04/03/17 09:58 Dose: 40 mg Fluticasone/Salmeterol (Advair Diskus 250/50) 1 puff INH RQ12 [facility] Last Admin: 04/03/17 08:26 Dose: Not Given - Labs Labs: 03/30/17 17:02 03/30/17 17:02 - Constitutional Appears: Well - Head Exam Head Exam: ATRAUMATIC, NORMAL INSPECTION, NORMOCEPHALIC - Eye Exam Eye Exam: EOMI, Normal appearance, PERRL Pupil Exam: NORMAL ACCOMODATION, PERRL - ENT Exam ENT Exam: Mucous Membranes Moist, Normal Exam - Neck Exam Neck Exam: Full ROM, Normal Inspection. absent: Lymphadenopathy - Respiratory Exam Respiratory Exam: Decreased Breath Sounds - Cardiovascular Exam Cardiovascular Exam: REGULAR RHYTHM, +S1, +S2 - GI/Abdominal Exam GI & Abdominal Exam: Soft, Diminished Bowel Sounds - Rectal Exam Rectal Exam: Deferred
--- NOTE | 2017-04-03 13:19 | CP.PCM.PN ---
Objective - Vital Signs/Intake and Output Vital Signs (last 24 hours): Temp Pulse Resp BP Pulse Ox 97.8 F 58 L 18 140/83 97 04/03/17 07:10 04/03/17 08:06 04/03/17 07:10 04/03/17 07:10 04/03/17 07:10 - Medications Medications: Current Medications Acetylcysteine (Acetylcysteine 20%) 4 ml INH RQ6 [facility] Last Admin: 04/03/17 07:33 Dose: 4 ml Albuterol/Ipratropium (Duoneb 3 Mg/0.5 Mg (3 Ml) Ud) 3 ml INH RQ6 [facility] Last Admin: 04/03/17 07:32 Dose: 3 ml Enoxaparin Sodium (Lovenox) 40 mg SC DAILY [facility] Last Admin: 04/03/17 09:58 Dose: 40 mg Azithromycin 500 mg/ Sodium (Chloride) 250 mls @ 250 mls/hr IVPB DAILY [facility] Last Admin: 04/03/17 10:02 Dose: 250 mls/hr Methylprednisolone (Solu-Medrol) 40 mg IVP Q8 [facility] Last Admin: 04/03/17 13:00 Dose: 40 mg Montelukast Sodium (Singulair) 10 mg PO HS [facility] Moxifloxacin HCl (Avelox) 400 mg PO DAILY [facility] Last Admin: 04/03/17 09:58 Dose: 400 mg Pantoprazole Sodium (Protonix Ec Tab) 40 mg PO DAILY [facility] Last Admin: 04/03/17 09:58 Dose: 40 mg Fluticasone/Salmeterol (Advair Diskus 250/50) 1 puff INH RQ12 [facility] Last Admin: 04/03/17 08:26 Dose: Not Given Tiotropium [place] (Spiriva Inhalation Handihaler Device) 1 inhaler INH ONCE ONE Stop: 04/03/17 13:19 - Labs Labs: 03/30/17 17:02 03/30/17 17:02
[2017-04-03 13:43] LABS: BASO % 0.3 % (0.0-2.0); HEMATOCRIT 38.8 % (34.0-47.0); LYMPH # 1.2 K/uL (1.0-4.3); LYMPH % 8.9 % (20.0-40.0); MEAN CELL VOLUME 85.3 fL (81.0-99.0); MEAN CORPUSCULAR HGB CONC 32.9 g/dL (33.0-37.0); MEAN PLATELET VOLUME 7.8 fL (7.2-11.7); MONO # 0.7 K/uL (0.0-0.8); MONO % 5.3 % (0.0-10.0); RED CELL DISTRIBUTION WIDTH 13.9 % (11.5-14.5); WHITE BLOOD COUNT 13.7 K/uL (4.8-10.8)
[2017-04-03 13:44] LABS: PLATELET COUNT 451 K/uL (130-400)
[2017-04-03 13:50] LABS: CHLORIDE 102 mmol/L (98-107)
[2017-04-03 13:51] LABS: SODIUM 144 mmol/L (132-148)
[2017-04-03 13:52] LABS: POTASSIUM 3.9 mmol/L (3.6-5.2)
[2017-04-03 13:54] LABS: ALB/GLOB RATIO 1.2 (1.0-2.1); ALKALINE PHOSPHATASE 70 U/L (38-126); ALT/SGPT 32 U/L (9-52); AST/SGOT 25 U/L (14-36); BILIRUBIN,TOTAL 0.2 mg/dL (0.2-1.3); BLOOD UREA NITROGEN 13 mg/dL (7-17); CARBON DIOXIDE 27 mmol/L (22-30); GFR AFRICAN-AMERICAN > 60; GLUCOSE,RANDOM 132 mg/dL (65-105); PHOSPHOROUS 3.4 mg/dL (2.5-4.5)
[2017-04-03 13:55] LABS: CALCIUM 9.3 mg/dl (8.6-10.4); MAGNESIUM 2.2 mg/dL (1.6-2.3)
[2017-04-03 14:48] LABS: METAMYELOCYTE 1 % (0-0); NEUTROPHIL 83 % (50-75); TOTAL CELLS COUNTED 100
[2017-04-03 14:50] LABS: LARGE PLATELETS PRESENT
[2017-04-04] MEDS: Albuterol-Ipratrop 3 mg / 0.5 (3 ml) UD INH SCH ×4 (02:28→19:59)
[2017-04-04] MEDS: Acetylcysteine 20% Inhal Soln (4ml) INH SCH ×4 (02:28→19:59)
[2017-04-04] MEDS: MethylPREDNISolone 40 mg Vial IVP SCH ×3 (06:23→21:37)
[2017-04-04] MEDS: Tiotropium 18 mcg Cap For Inhalation INH SCH (07:46)
[2017-04-04] MEDS: Fluticasone-Salmeterol 250-50mcg Diskus INH SCH (08:00)
[2017-04-04] MEDS: Enoxaparin 40 mg Syringe SC SCH (09:37)
[2017-04-04] MEDS: Pantoprazole 40 mg EC Tab PO SCH (09:37)
--- NOTE | 2017-04-04 18:53 | CP.PCM.PN ---
Subjective - Date & Time of Evaluation Date of Evaluation: 04/04/17 Time of Evaluation: 09:20 - Subjective Subjective: clinically same Objective - Vital Signs/Intake and Output Vital Signs (last 24 hours): Temp Pulse Resp BP Pulse Ox 97.6 F 74 20 143/56 L 94 L 04/04/17 16:00 04/04/17 16:00 04/04/17 16:00 04/04/17 16:00 04/04/17 16:00 Intake and Output: 04/04/17 04/04/17 06:59 18:59 Intake Total 300 Balance 300 - Medications Medications: Current Medications Acetylcysteine (Acetylcysteine 20%) 4 ml INH RQ6 [facility] Last Admin: 04/04/17 13:30 Dose: 4 ml Albuterol/Ipratropium (Duoneb 3 Mg/0.5 Mg (3 Ml) Ud) 3 ml INH RQ6 [facility] Last Admin: 04/04/17 13:30 Dose: 3 ml Azithromycin (Zithromax) 500 mg PO DAILY [facility] Last Admin: 04/04/17 09:37 Dose: 500 mg Enoxaparin Sodium (Lovenox) 40 mg SC DAILY [facility] Last Admin: 04/04/17 09:37 Dose: 40 mg Methylprednisolone (Solu-Medrol) 40 mg IVP Q8 [facility] Last Admin: 04/04/17 14:50 Dose: 40 mg Montelukast Sodium (Singulair) 10 mg PO HS [facility] Last Admin: 04/03/17 22:34 Dose: 10 mg Moxifloxacin HCl (Avelox) 400 mg PO DAILY [facility] Last Admin: 04/04/17 09:37 Dose: 400 mg Pantoprazole Sodium (Protonix Ec Tab) 40 mg PO DAILY [facility] Last Admin: 04/04/17 09:37 Dose: 40 mg Fluticasone/Salmeterol (Advair Diskus 250/50) 1 puff INH RQ12 [facility] Last Admin: 04/04/17 08:00 Dose: Not Given Tiotropium [place] (Spiriva) 18 mcg INH RQ24 [facility] Last Admin: 04/04/17 07:46 Dose: 18 mcg - Labs Labs: 04/03/17 13:39 04/03/17 13:39 - Constitutional Appears: Well - Head Exam Head Exam: ATRAUMATIC, NORMAL INSPECTION, NORMOCEPHALIC - Eye Exam Eye Exam: EOMI, Normal appearance, PERRL - ENT Exam ENT Exam: Mucous Membranes Moist, Normal Exam - Neck Exam Neck Exam: Full ROM, Normal Inspection. absent: Lymphadenopathy - Respiratory Exam Respiratory Exam: Decreased Breath Sounds - Cardiovascular Exam Cardiovascular Exam: REGULAR RHYTHM, +S1, +S2. absent: Murmur - GI/Abdominal Exam GI & Abdominal Exam: Diminished Bowel Sounds - Rectal Exam Rectal Exam: Deferred
[2017-04-05] MEDS: Acetylcysteine 20% Inhal Soln (4ml) INH SCH ×4 (01:18→19:53)
[2017-04-05] MEDS: Albuterol-Ipratrop 3 mg / 0.5 (3 ml) UD INH SCH ×2 (01:18→19:53)
[2017-04-05] MEDS: MethylPREDNISolone 40 mg Vial IVP SCH ×3 (06:08→22:18)
[2017-04-05] MEDS: Fluticasone-Salmeterol 250-50mcg Diskus INH SCH ×2 (07:38→20:09)
[2017-04-05] MEDS: Tiotropium 18 mcg Cap For Inhalation INH SCH (07:38)
[2017-04-05] MEDS: Pantoprazole 40 mg EC Tab PO SCH (09:05)
[2017-04-05] MEDS: Enoxaparin 40 mg Syringe SC SCH (09:05)
--- NOTE | 2017-04-05 17:57 | CP.PCM.PN ---
Subjective - Date & Time of Evaluation Date of Evaluation: 04/05/17 Time of Evaluation: 09:40 - Subjective Subjective: clinically same Objective - Vital Signs/Intake and Output Vital Signs (last 24 hours): Temp Pulse Resp BP Pulse Ox 97.6 F 85 18 108/67 89 L 04/05/17 15:26 04/05/17 15:26 04/05/17 15:26 04/05/17 15:26 04/05/17 15:26 Intake and Output: 04/05/17 04/05/17 06:59 18:59 Intake Total 350 Balance 350 - Medications Medications: Current Medications Acetylcysteine (Acetylcysteine 20%) 4 ml INH RQ6 [facility] Last Admin: 04/05/17 13:28 Dose: 4 ml Albuterol/Ipratropium (Duoneb 3 Mg/0.5 Mg (3 Ml) Ud) 3 ml INH RQ6 [facility] Azithromycin (Zithromax) 500 mg PO DAILY [facility] Last Admin: 04/05/17 10:04 Dose: 500 mg Enoxaparin Sodium (Lovenox) 40 mg SC DAILY [facility] Last Admin: 04/05/17 09:05 Dose: 40 mg Methylprednisolone (Solu-Medrol) 40 mg IVP Q8 [facility] Last Admin: 04/05/17 13:09 Dose: 40 mg Montelukast Sodium (Singulair) 10 mg PO HS [facility] Last Admin: 04/04/17 21:37 Dose: 10 mg Moxifloxacin HCl (Avelox) 400 mg PO DAILY [facility] Last Admin: 04/05/17 09:05 Dose: 400 mg Pantoprazole Sodium (Protonix Ec Tab) 40 mg PO DAILY [facility] Last Admin: 04/05/17 09:05 Dose: 40 mg Fluticasone/Salmeterol (Advair Diskus 250/50) 1 puff INH RQ12 [facility] Last Admin: 04/05/17 07:38 Dose: Not Given Tiotropium [place] (Spiriva) 18 mcg INH RQ24 [facility] Last Admin: 04/05/17 07:38 Dose: 18 mcg - Labs Labs: 04/03/17 13:39 04/03/17 13:39 - Constitutional Appears: Well - Eye Exam Eye Exam: EOMI, Normal appearance, PERRL - ENT Exam ENT Exam: Mucous Membranes Moist, Normal Exam - Neck Exam Neck Exam: Full ROM, Normal Inspection. absent: Lymphadenopathy - Respiratory Exam Respiratory Exam: Decreased Breath Sounds - Cardiovascular Exam Cardiovascular Exam: REGULAR RHYTHM, +S1, +S2. absent: Murmur - GI/Abdominal Exam GI & Abdominal Exam: Diminished Bowel Sounds - Rectal Exam Rectal Exam: Deferred
--- NOTE | 2017-04-06 01:01 | CP.PCM.PN ---
Subjective - Date & Time of Evaluation Date of Evaluation: 04/03/17 Time of Evaluation: 12:00 - Subjective Subjective: No complaints, breathing better Objective - Vital Signs/Intake and Output Vital Signs (last 24 hours): Temp Pulse Resp BP Pulse Ox 97.6 F 85 18 108/67 89 L 04/05/17 15:26 04/05/17 15:26 04/05/17 15:26 04/05/17 15:26 04/05/17 15:26 Intake and Output: 04/05/17 04/06/17 18:59 06:59 Intake Total 300 Balance 300 - Medications Medications: Current Medications Acetylcysteine (Acetylcysteine 20%) 4 ml INH RQ6 [facility] Last Admin: 04/05/17 19:53 Dose: 4 ml Albuterol/Ipratropium (Duoneb 3 Mg/0.5 Mg (3 Ml) Ud) 3 ml INH RQ6 [facility] Last Admin: 04/05/17 19:53 Dose: 3 ml Azithromycin (Zithromax) 500 mg PO DAILY [facility] Last Admin: 04/05/17 10:04 Dose: 500 mg Enoxaparin Sodium (Lovenox) 40 mg SC DAILY [facility] Last Admin: 04/05/17 09:05 Dose: 40 mg Methylprednisolone (Solu-Medrol) 40 mg IVP Q8 [facility] Last Admin: 04/05/17 22:18 Dose: 40 mg Montelukast Sodium (Singulair) 10 mg PO HS [facility] Last Admin: 04/05/17 22:18 Dose: 10 mg Moxifloxacin HCl (Avelox) 400 mg PO DAILY [facility] Last Admin: 04/05/17 09:05 Dose: 400 mg Pantoprazole Sodium (Protonix Ec Tab) 40 mg PO DAILY [facility] Last Admin: 04/05/17 09:05 Dose: 40 mg Fluticasone/Salmeterol (Advair Diskus 250/50) 1 puff INH RQ12 [facility] Last Admin: 04/05/17 20:09 Dose: 1 puff Tiotropium [place] (Spiriva) 18 mcg INH RQ24 [facility] Last Admin: 04/05/17 07:38 Dose: 18 mcg - Labs Labs: 04/03/17 13:39 04/03/17 13:39 - Head Exam Head Exam: ATRAUMATIC - Eye Exam Eye Exam: Normal appearance - ENT Exam ENT Exam: Mucous Membranes Dry - Respiratory Exam Respiratory Exam: NORMAL BREATHING PATTERN - Cardiovascular Exam Cardiovascular Exam: +S1, +S2 - GI/Abdominal Exam GI & Abdominal Exam: Normal Bowel Sounds - Extremities Exam Extremities Exam: Normal Inspection Assessment and Plan (1) Lung nodules Assessment & Plan: if not accessible for biopsy, will send for outpatient PET CT scan and determine most accessible lesion to biopsy Status: Acute (2) Leukocytosis Status: Acute
--- NOTE | 2017-04-06 01:02 | CP.PCM.PN ---
Subjective - Date & Time of Evaluation Date of Evaluation: 04/04/17 Time of Evaluation: 18:10 - Subjective Subjective: Feeling better Objective - Vital Signs/Intake and Output Vital Signs (last 24 hours): Temp Pulse Resp BP Pulse Ox 97.6 F 85 18 108/67 89 L 04/05/17 15:26 04/05/17 15:26 04/05/17 15:26 04/05/17 15:26 04/05/17 15:26 Intake and Output: 04/05/17 04/06/17 18:59 06:59 Intake Total 300 Balance 300 - Medications Medications: Current Medications Acetylcysteine (Acetylcysteine 20%) 4 ml INH RQ6 [facility] Last Admin: 04/05/17 19:53 Dose: 4 ml Albuterol/Ipratropium (Duoneb 3 Mg/0.5 Mg (3 Ml) Ud) 3 ml INH RQ6 [facility] Last Admin: 04/05/17 19:53 Dose: 3 ml Azithromycin (Zithromax) 500 mg PO DAILY [facility] Last Admin: 04/05/17 10:04 Dose: 500 mg Enoxaparin Sodium (Lovenox) 40 mg SC DAILY [facility] Last Admin: 04/05/17 09:05 Dose: 40 mg Methylprednisolone (Solu-Medrol) 40 mg IVP Q8 [facility] Last Admin: 04/05/17 22:18 Dose: 40 mg Montelukast Sodium (Singulair) 10 mg PO HS [facility] Last Admin: 04/05/17 22:18 Dose: 10 mg Moxifloxacin HCl (Avelox) 400 mg PO DAILY [facility] Last Admin: 04/05/17 09:05 Dose: 400 mg Pantoprazole Sodium (Protonix Ec Tab) 40 mg PO DAILY [facility] Last Admin: 04/05/17 09:05 Dose: 40 mg Fluticasone/Salmeterol (Advair Diskus 250/50) 1 puff INH RQ12 [facility] Last Admin: 04/05/17 20:09 Dose: 1 puff Tiotropium [place] (Spiriva) 18 mcg INH RQ24 [facility] Last Admin: 04/05/17 07:38 Dose: 18 mcg - Labs Labs: 04/03/17 13:39 04/03/17 13:39 - Head Exam Head Exam: ATRAUMATIC - Eye Exam Eye Exam: Normal appearance - ENT Exam ENT Exam: Mucous Membranes Dry - Respiratory Exam Respiratory Exam: NORMAL BREATHING PATTERN - Cardiovascular Exam Cardiovascular Exam: +S1, +S2 - GI/Abdominal Exam GI & Abdominal Exam: Normal Bowel Sounds - Extremities Exam Extremities Exam: Normal Inspection Assessment and Plan (1) Lung nodules Assessment & Plan: if not accessible for biopsy, will send for outpatient PET CT scan and determine most accessible lesion to biopsy Status: Acute (2) Leukocytosis Status: Acute
[2017-04-06] MEDS: Acetylcysteine 20% Inhal Soln (4ml) INH SCH ×3 (01:13→13:18)
[2017-04-06] MEDS: Albuterol-Ipratrop 3 mg / 0.5 (3 ml) UD INH SCH ×3 (01:13→13:18)
[2017-04-06 01:16] VITALS: RESP 20
[2017-04-06] MEDS: MethylPREDNISolone 40 mg Vial IVP SCH ×2 (06:01→14:28)
[2017-04-06 08:50] VITALS: O2SAT 96
--- NOTE | 2017-04-06 09:01 | CP.PCM.PN ---
Subjective - Date & Time of Evaluation Date of Evaluation: 04/06/17 Time of Evaluation: 08:57 - Subjective Subjective: PGY-[address] You's service: Pt seen and examined at bedside. No acute events overnight per nursing. She reports improved SOB. She denies chest pain, abdominal pain, N/V/D/C. I met with beneficiary and determined she had severe lung disease (COPD). Oxygen saturation are at 88% at rest. Testing at rest without oxygen: 88% Testing during exercise exercise without oxygen: 86% Testing during exercise with oxygen applied: 91% Objective - Vital Signs/Intake and Output Vital Signs (last 24 hours): Temp Pulse Resp BP Pulse Ox 97.7 F 78 20 103/70 96 04/06/17 08:49 04/06/17 08:49 04/06/17 08:49 04/06/17 08:49 04/06/17 08:49 Intake and Output: 04/06/17 04/06/17 06:59 18:59 Intake Total 300 Balance 300 - Medications Medications: Current Medications Acetylcysteine (Acetylcysteine 20%) 4 ml INH RQ6 [facility] Last Admin: 04/06/17 07:31 Dose: 4 ml Albuterol/Ipratropium (Duoneb 3 Mg/0.5 Mg (3 Ml) Ud) 3 ml INH RQ6 [facility] Last Admin: 04/06/17 07:31 Dose: 3 ml Azithromycin (Zithromax) 500 mg PO DAILY [facility] Last Admin: 04/05/17 10:04 Dose: 500 mg Enoxaparin Sodium (Lovenox) 40 mg SC DAILY [facility] Last Admin: 04/05/17 09:05 Dose: 40 mg Methylprednisolone (Solu-Medrol) 40 mg IVP Q8 [facility] Last Admin: 04/06/17 06:01 Dose: 40 mg Montelukast Sodium (Singulair) 10 mg PO HS [facility] Last Admin: 04/05/17 22:18 Dose: 10 mg Moxifloxacin HCl (Avelox) 400 mg PO DAILY [facility] Last Admin: 04/05/17 09:05 Dose: 400 mg Pantoprazole Sodium (Protonix Ec Tab) 40 mg PO DAILY [facility] Last Admin: 04/05/17 09:05 Dose: 40 mg Fluticasone/Salmeterol (Advair Diskus 250/50) 1 puff INH RQ12 [facility] Last Admin: 04/05/17 20:09 Dose: 1 puff Tiotropium [place] (Spiriva) 18 mcg INH RQ24 [facility] Last Admin: 04/05/17 07:38 Dose: 18 mcg - Labs Labs: 04/03/17 13:39 04/03/17 13:39 - Constitutional Appears: Non-toxic, No Acute Distress - Head Exam Head Exam: ATRAUMATIC, NORMOCEPHALIC - Eye Exam Eye Exam: EOMI. absent: Scleral icterus Pupil Exam: PERRL - ENT Exam ENT Exam: Mucous Membranes Moist - Neck Exam Neck Exam: Full ROM - Respiratory Exam Respiratory Exam: Decreased Breath Sounds, Wheezes (improved since admission). absent: Respiratory Distress - Cardiovascular Exam Cardiovascular Exam: REGULAR RHYTHM, +S1, +S2 - GI/Abdominal Exam GI & Abdominal Exam: Soft, Normal Bowel Sounds. absent: Tenderness - Extremities Exam Extremities Exam: Normal Inspection. absent: Pedal Edema, Tenderness - Back Exam Back Exam: absent: CVA tenderness (L), CVA tenderness (R) - Neurological Exam Neurological Exam: Alert, Awake, Oriented x3 - Skin Skin Exam: Normal Color, Warm Assessment and Plan - Assessment and Plan (Free Text) Plan: Lung nodules 04/03: pulmonary evaluation for possible bronchoscopy with biopsy. - f/u witDr. Theodore and Dr. Davila. mediastinal and hilar lymphadenopathy; concerning for lung malignancy recommend pulmonary evaluation and bronchoscopy with biopsy Chest CT w/o contrast - Mediastinal and hilar adenopathy and multiple small bilateral pulmonary nodules, findings are suspicious for malignancy; almost complete occlusion of the right middle lobe bronchus with right middle lobe atelectasis; further treatment recommendations based on pathology. Dr. Barton, Hem/Onc consulted: - if not accessible for biopsy, send for OPDX PET CT - follow up in office after discharge Leukocytosis 04/06: 23.7 -Pt on steroids Avelox 400mg PO qD Azithromycin 500mg IVPB qD COPD (chronic obstructive pulmonary disease) -Patient with long history of smoking presented with shortness of breath and cough. Continue nebulizer treatment, IV steroids and antibiotics. Continue BiPAP as needed - Pt meets requirements for home oxygen Dr. Davila/[place], Pulm constultants: help appreciated Mucomyst Advair Diskus 250/50) 1 puff INH RQ12 [facility] Solu-Medrol) 40 mg IVP Q8 [facility] Duoneb 3 Mg/0.5 Mg (3 Ml) Ud) 3 ml INH RQ6 [facility] Acetylcysteine 20%) 4 ml INH RQ6 [facility] Singulair 10mg PO HS - Pulmonology consultants agree biopsy is not recommended. Pt should continue course of nebulizer, antibiotics, then have followup CT scan in 3 months. - follow up in [facility] office as outpatient Prophylaxis SCDs Pneumovax 23 Vaccine 0.5 ml IM .ONCE ONE Protonix Ec Tab 40 mg PO DAILY [facility] Lovenox 40 mg SC DAILY [facility] Disposition: Need approval for home O2, then discharge. Jose M Hughes PGY-2 Case discussed with attending. All medical management as per Dr. Jazmin You
[2017-04-06] MEDS: Pantoprazole 40 mg EC Tab PO SCH (09:34)
[2017-04-06] MEDS: Enoxaparin 40 mg Syringe SC SCH (09:34)
[2017-04-06] MEDS: Tiotropium 18 mcg Cap For Inhalation INH SCH (10:22)
[2017-04-06] MEDS: Fluticasone-Salmeterol 250-50mcg Diskus INH SCH (10:22)
[2017-04-06 12:07] LABS: BASO % 0.1 % (0.0-2.0); HEMATOCRIT 40.9 % (34.0-47.0); LYMPH % 4.1 % (20.0-40.0); MEAN CELL VOLUME 84.8 fL (81.0-99.0); MEAN CORPUSCULAR HEMOGLOBIN 27.6 pg (27.0-31.0); MEAN CORPUSCULAR HGB CONC 32.5 g/dL (33.0-37.0); MEAN PLATELET VOLUME 7.8 fL (7.2-11.7); MONO % 4.2 % (0.0-10.0); NRBC % 0.1 % (0.0-2.0); RED CELL DISTRIBUTION WIDTH 14.4 % (11.5-14.5)
[2017-04-06 12:13] LABS: PLATELET COUNT 553 K/uL (130-400); WHITE BLOOD COUNT 23.7 K/uL (4.8-10.8)
[2017-04-06 12:21] LABS: CHLORIDE 102 mmol/L (98-107); POTASSIUM 3.9 mmol/L (3.6-5.2); SODIUM 140 mmol/L (132-148)
[2017-04-06 12:23] LABS: ALB/GLOB RATIO 1.3 (1.0-2.1); ALKALINE PHOSPHATASE 65 U/L (38-126); AST/SGOT 22 U/L (14-36); BILIRUBIN,TOTAL 0.3 mg/dL (0.2-1.3); CARBON DIOXIDE 23 mmol/L (22-30); GFR AFRICAN-AMERICAN > 60; TOTAL PROTEIN 7.1 g/dL (6.3-8.3)
[2017-04-06 12:24] LABS: ALT/SGPT 36 U/L (9-52); BLOOD UREA NITROGEN 16 mg/dL (7-17); GLUCOSE,RANDOM 134 mg/dL (65-105); MAGNESIUM 2.2 mg/dL (1.6-2.3); PHOSPHOROUS 3.2 mg/dL (2.5-4.5)
[2017-04-06 13:09] LABS: METAMYELOCYTE 2 % (0-0); MYELOCYTE 2 % (0-0); NEUTROPHIL 80 % (50-75); REACTIVE LYMPHOCYTES 1 % (0-0); TOTAL CELLS COUNTED 100
[2017-04-06 13:10] LABS: LARGE PLATELETS PRESENT
[2017-04-06 16:21] VITALS: BP 104/69; PULSE 73; TEMP 97.8
== END 2017-04-06 17:35 | disposition home or self-care (01) | DRG 191 ==
LOC: C.ER 15:28 → OBSVTOIN 18:32 → C.9E 18:32 → C.3T 22:08 → C.9E 22:24 → C.6T 22:39
PROVIDERS: ADMIT Internal Medicine Nephrology; ATTEND Internal Medicine Nephrology
PROC: 5A09557 Assistance with Respiratory Ventilation, Greater than 96 Consecutive Hours, Continuous Positive Airway Pressure (ICD-10-PCS; principal; 2017-03-30)
DX: J44.1 Chronic obstructive pulmonary disease with (acute) exacerbation (principal); J45.901 Unspecified asthma with (acute) exacerbation; J98.11 Atelectasis; J98.09 Other diseases of bronchus, not elsewhere classified; D72.829 Elevated white blood cell count, unspecified; M19.90 Unspecified osteoarthritis, unspecified site; R91.8 Other nonspecific abnormal finding of lung field; Z87.891 Personal history of nicotine dependence; Z79.51 Long term (current) use of inhaled steroids; Z23 Encounter for immunization; Z88.0 Allergy status to penicillin